=== PATIENT | female | born 2000 | race Caucasian/White ===

== ENCOUNTER 2023-09-18 00:04 | Inpatient (IN) | payer BC, OTHER ==
[~2023-09-18] VITALS: Ht 167.6 cm; Wt 68.0 kg
--- NOTE | ~2023-09-18 | OR ---
[facility] [address] [place], [place] [address] Draft DATE OF OPERATION: 09/19/2023 SURGEON: Shira Sue DO PREOPERATIVE DIAGNOSES: 1. Intrauterine at 40 weeks gestation. 2. Gestational diabetes, diet controlled. 3. Nonreassuring heart tracing. POSTOPERATIVE DIAGNOSES: 1. Intrauterine at 40 weeks gestation. 2. Gestational diabetes, diet controlled. 3. Nonreassuring heart tracing. PROCEDURE PERFORMED: Primary low transverse delivery. [employer]: Jer Mireles MD. ANESTHESIA: Epidural with postoperative TAP blocks. ESTIMATED BLOOD LOSS: 500 mL. COMPLICATIONS: None. DRAINS: Vicente to gravity. SPECIMEN: Cord blood for routine analysis and cord gases pending. COMPLICATIONS: None. FINDINGS: Delivery of viable male , 6 pounds 15 ounces in the LOT position with significant PATIENT NAME: NELIA PEDRAZA OPERATIVE REPORT DATE OF : 99 REPORT #: [id number] PHYSICIAN: SHIRA SUE (NEEL) PCP: SHIRA SUE (NEEL) REPORT IS CONFIDENTIAL AND NOT TO BE RELEASED WITHOUT AUTHORIZATION [facility] [address] [place] [id number] Draft caput. Apgars of 8 and 9. Clear amniotic fluid and nuchal cord x1. Normal uterus, tubes, and ovaries. INDICATIONS: Ms. Pedraza is a very pleasant 22-year-old G1 with intrauterine at 40 weeks and zero days gestation who presented for medical induction of labor for gestational diabetes, well controlled with diet. The patient with an unfavorable cervix and received two doses of Cytotec. Artificial rupture of membranes was performed for a large amount of clear fluid. The patient had adequate frequent contractions. An epidural was kindly placed. The patient then had interval episodes of recurrent late decelerations. IUPC and FSE were placed. Intrauterine resuscitation was performed with maternal position changes and IV fluid boluses. The fetus had episodes of category one tracing with more recurrent late decelerations noted. Per [employer] intrapartum management of category 2 tracings recommended primary low transverse delivery. Risks, benefits, and alternatives were discussed in detail with the patient. The patient understands and wished to proceed with the procedure. PROCEDURE IN DETAIL: The patient was taken to the operating room where a time-out was performed to confirm correct patient and correct procedure. Epidural was bolused and found to be adequate. A Vicente catheter being inserted and patient received Ancef 2 g as well as azithromycin 500 mg preoperatively. No heparin was indicated. A Pfannenstiel skin incision was made approximately 2-3 cm above the pubic symphysis and carried down to the fascia. Fascia was nicked in the midline. Fascial incision was extended bilaterally using curved العلي scissors. Fascia was grasped with Stefania's, elevated the underlying rectus muscle dissected off bluntly and sharply. The rectus was divided bluntly and peritoneum was entered bluntly. Peritoneal incision was extended cephalad caudad using blunt dissection. Lower uterine segment was identified and Collin self retractor was placed. Hysterotomy was performed using a surgical scalpel, lower uterine segment. Clear fluid was noted. Hysterotomy was extended bilaterally using blunt dissection. The surgeon's hand was placed in the uterine cavity. The head gently elevated into the maternal abdomen, noted to be in the LOT position with significant caput. Nuchal cord x1 was identified, which continued wrap-around the body. The was delivered with the assistance of fundal pressure and was vigorous and cried. Hypocoiled cord was instantly noted. Cord was doubly clamped, cut, and the handed to the waiting pediatric team for further care. Cord was obtained for routine analysis and for cord gases. Placenta was expressed, intact with a centrally inserted three-vessel cord. The uterine cavity was cleared of any remaining products of conception or clot. Pitocin was administered per protocol. Hysterotomy was then repaired in two layers of 0 Monocryl, first being a running locked layer and the second being a running imbricating suture in the vertical manner. The pelvis was irrigated and made hemostatic with judicious use of Bovie electrocautery and one figure of eight with 0 Monocryl. Once hemostasis was PATIENT NAME: NELIA PEDRAZA OPERATIVE REPORT DATE OF : 99 REPORT #: [id number] PHYSICIAN: SHIRA SUE (NEEL) PCP: SHIRA SUE (NEEL) DO REPORT IS CONFIDENTIAL AND NOT TO BE RELEASED WITHOUT AUTHORIZATION [facility] [address] [place], [place] [address] Draft appreciated the Collin retractor was removed and peritoneum was approximated using 2-0 Vicryl in a running nonlocked manner. Rectus was gently plicated in the midline with three interrupted sutures of 0 Vicryl and the rectus was irrigated and found to be hemostatic. The fascia was reapproximated using 0 Vicryl in a running nonlocked manner. Subcu was made hemostatic with judicious use of Bovie electrocautery after irrigation. Skin was reapproximated using surgical trevor. The uterus was Crede'd for scant amount of blood and the patient remained in the PACU for postoperative TAP blocks. Sponge, needle, and instrument counts were correct x2 at the end of the procedure. Dr. Mireles was present and participated in all portions of the procedure. DO NADINE Rockwell/ORLANDOL /[id number] Copies: ~ PATIENT NAME: NELIA PEDRAZA OPERATIVE REPORT DATE OF : 99 REPORT #: [id number] PHYSICIAN: SHIRA SUE (NEEL) PCP: SHIRA SUE) REPORT IS CONFIDENTIAL AND NOT TO BE RELEASED WITHOUT AUTHORIZATION
[2023-09-18 00:43] VITALS: BP 137/92
[2023-09-18 00:55] LABS: HEMATOCRIT 35.6 % (35.0-50.0); HEMOGLOBIN 12.1 g/dL (12.0-18.0); MCH 29.6 (27-36); MCHC 33.9 g/dl (30-36); MCV 87.3 fl (81-99); RBC 4.07 M/ul (4.3-5.7); RDW 13.2 (10.5-15.0)
[2023-09-18 01:13] LABS: AMPHETAMINES, URINE NEGATIVE (NEGATIVE); BARBITURATES, URINE NEGATIVE (NEGATIVE); BENZODIAZEPINE, URINE NEGATIVE (NEGATIVE); BUPRENORPHINE, URINE NEGATIVE (NEGATIVE); CANNABINOID, URINE NEGATIVE (NEGATIVE); COCAINE, URINE NEGATIVE (NEGATIVE); ECSTASY, URINE NEGATIVE (NEGATIVE); FENTANYL, URINE NEGATIVE (NEGATIVE); METHADONE, URINE NEGATIVE (NEGATIVE); OPIATES, URINE NEGATIVE (NEGATIVE); OXYCODONE, URINE NEGATIVE (NEGATIVE); PHENCYCLIDINE, URINE NEGATIVE (NEGATIVE)
[2023-09-18 02:04] LABS: ABO O; ANTIBODY SCREEN POSITIVE; RH NEGATIVE
[2023-09-18 02:05] LABS: ANTIBODY IDENTIFICATION ANTI-D
[2023-09-18 08:16] LABS: ALBUMIN 2.9 g/dL (3.4-5.0); ALBUMIN/GLOBULIN RATIO 0.74 (1.1-2.4); BILIRUBIN, TOTAL 0.2 ng/dL (0.2-1.0); BUN/CREATININE RATIO 17.74 (6.0-28.6); CALCIUM 9.4 mg/dL (8.5-10.1); CREATININE, SERUM 0.62 mg/dL (0.55-1.02); PROTEIN, TOTAL 6.8 g/dL (6.4-8.2)
[2023-09-18 09:02] LABS: PROTEIN, RANDOM URINE <6 mg/dL (NOT ESTABLISHED)
[2023-09-18 09:05] LABS: CREATININE, RANDOM URINE 10.53 mg/dL (NOT ESTABLISHED)
--- NOTE | 2023-09-18 12:42 | PR ---
[facility] [address] [place], [place] [address] Signed Progress Notes IP Datetime Report Generated by CPN: 09/18/2023 12:42 PROGRESS NOTES: [id number] Impression: Normal Progression of Labor; Reassuring Heart Rate Procedures: Sterile Vag Exam Plan: Continue Present Management Other Plans: Pt requesting epidural VITAL SIGNS: [id number] Vital Signs: Reviewed; Within Normal Limits VS Notable Details: Elevated BPs; normal PreE labs EXAM: [id number] Dilatation: 1.0 Effacement: 75 Station: -2 Contractions: q 1-2 minutes MEMBRANES: [id number] Comments: Pt seen and examined. Doing well. Uncomfortable w/ contractions. Considering epidural. Reviewed anticipated course of induction / labor. Discussed option for AROM vs Cook. Pt will spend some time in the tub and ambulating. FETUS A: [id number] FHR Baseline: 130 Variability: Moderate 6-25bpm Accelerations: 15X15 Decelerations: None FHR Category: Category I Presentation: Vertex Comments on Fetus A: No evidence of metabolic acidosis FETUS B: [id number] Signing Physician: Shira Sue DO Copies: ~ *Electronically Signed* 09/18/23 1530 SHIRA SUE (NEEL) DO PATIENT NAME: NELIA AQUINO PROGRESS NOTE DATE OF : 99 PHYSICIAN: SHIRA SUE) DO RPT #: [id number] REPORT IS CONFIDENTIAL AND NOT TO BE RELEASED WITHOUT AUTHORIZATION
--- NOTE | 2023-09-18 14:27 | PR ---
[facility] [address] [place], [place] [address] Signed Progress Notes IP Datetime Report Generated by CPN: 09/18/2023 14:27 PROGRESS NOTES: [id number] Impression: Normal Progression of Labor; Reassuring Heart Rate Procedures: Artificial ROM; Sterile Vag Exam Plan: Continue Present Management Other Plans: Epidural on demand Informed Consent Obtain: Vaginal Delivery; Risks, Benefits and Alternatives Discussed Other Informed Consents: AROM VITAL SIGNS: [id number] Vital Signs: Reviewed; Within Normal Limits VS Notable Details: Elevated BPs; normal PreE labs EXAM: [id number] Dilatation: 1.5 Effacement: 80 Station: -2 Contractions: q 2 min MEMBRANES: [id number] Comments: Pt seen and examined. Doing well. Contractions increasing in frequency and intensity. Discussed AROM. AROM performed for large amount of clear fluid. FETUS A: [id number] FHR Baseline: 130 Variability: Moderate 6-25bpm Accelerations: 15X15 Decelerations: None FHR Category: Category I Presentation: Vertex Comments on Fetus A: No evidence of metabolic acidosis FETUS B: [id number] Signing Physician: Shira Sue DO Copies: ~ *Electronically Signed* 09/18/23 1428 SHIRA SUE (NEEL) DO PATIENT NAME: NELIA AQUINO PROGRESS NOTE DATE OF : 99 PHYSICIAN: SHIRA SUE) DO RPT #: [id number] REPORT IS CONFIDENTIAL AND NOT TO BE RELEASED WITHOUT AUTHORIZATION
--- NOTE | 2023-09-18 17:42 | PR ---
[facility] [address] [place], [place] [address] Signed Progress Notes IP Datetime Report Generated by CPN: 09/18/2023 17:42 PROGRESS NOTES: [id number] Impression: Normal Progression of Labor; Reassuring Heart Rate Other Impressions: Slow progression of labor / recurrent decels Procedures: Sterile Vag Exam Plan: Continue Present Management Other Plans: Intrauterine recussitation Informed Consent Obtain: Vaginal Delivery; Risks, Benefits and Alternatives Discussed Other Informed Consents: Indications for if needed VITAL SIGNS: [id number] Vital Signs: Reviewed; Within Normal Limits VS Notable Details: Elevated BPs; normal PreE labs EXAM: [id number] Dilatation: 2.0 Effacement: 90 Station: -2 Contractions: q 2-4 minutes MEMBRANES: [id number] Comments: Pt seen and examined. Comfortable w/ contractions s/p epidural. Since epidural, moderate variability w/ recurrent late and occasional variable decelerations. Intrauterine recussitation w/ IV fluid bolus and maternal repositioning initiated. Reviewed BPs and some softening of BPs since epidural. Will trial ephedrine 10mg IV x 1 dose and monitor. Will attempt hands / knees position. Discussed indications for if needed. All questions answered. FETUS A: [id number] FHR Baseline: 130 Variability: Moderate 6-25bpm Accelerations: 15X15 Decelerations: Late; Variable FHR Category: Category II Presentation: Vertex Comments on Fetus A: No evidence of metabolic acidosis FETUS B: [id number] Signing Physician: Shira Sue DO *Electronically Signed* 09/18/23 7711 SHIRA SUE) DO PATIENT NAME: NELIA AQUINO PROGRESS NOTE DATE OF : 99 PHYSICIAN: SHIRA SUE) DO RPT #: [id number] REPORT IS CONFIDENTIAL AND NOT TO BE RELEASED WITHOUT AUTHORIZATION
--- NOTE | 2023-09-18 18:48 | PR ---
[facility] [address] [place], [place] [address] Signed Progress Notes IP Datetime Report Generated by CPN: 09/18/2023 18:48 PROGRESS NOTES: [id number] Impression: Reassuring Heart Rate Other Impressions: Slow progression of labor / recurrent decels Procedures: Sterile Vag Exam Plan: Continue Present Management Other Plans: Intrauterine recussitation Informed Consent Obtain: Vaginal Delivery; Risks, Benefits and Alternatives Discussed Other Informed Consents: Indications for if needed VITAL SIGNS: [id number] Vital Signs: Reviewed; Within Normal Limits VS Notable Details: Elevated BPs; normal PreE labs EXAM: [id number] Dilatation: 2.0 Effacement: 90 Station: -2 Contractions: q 2-4 minutes MEMBRANES: [id number] Comments: Cat 1 tracing w/ pt now in R lateral position. Will continue to monitor closely. FETUS A: [id number] FHR Baseline: 130 Variability: Moderate 6-25bpm Accelerations: 15X15 Decelerations: None FHR Category: Category I Presentation: Vertex Comments on Fetus A: No evidence of metabolic acidosis FETUS B: [id number] Signing Physician: Shira Sue DO Copies: ~ *Electronically Signed* 09/18/23 1841 SHIRA SUE (NEEL) DO PATIENT NAME: NELIA AQUINO PROGRESS NOTE DATE OF : 99 PHYSICIAN: SHIRA SUE) DO RPT #: [id number] REPORT IS CONFIDENTIAL AND NOT TO BE RELEASED WITHOUT AUTHORIZATION
--- NOTE | 2023-09-19 00:06 | PR ---
[facility] [address] [place], [place] [address] Signed Progress Notes IP Datetime Report Generated by JOE: 09/19/2023 00:06 PROGRESS NOTES: [id number] Impression: Non-reassuring Heart Rate Other Impressions: Slow progression of labor / recurrent decels Procedures: Sterile Vag Exam Plan: Deliver- Section Other Plans: Intrauterine recussitation Informed Consent Obtain: Section Delivery; Risks, Benefits and Alternatives Discussed Other Informed Consents: Indications for if needed VITAL SIGNS: [id number] Vital Signs: Reviewed; Within Normal Limits VS Notable Details: Elevated BPs; normal PreE labs EXAM: [id number] Dilatation: 3.0 Effacement: 95 Station: -2 Contractions: q 3-4 minutes MEMBRANES: [id number] Comments: Pt seen and examined. Pt tearful and tired reporting that she is frustrated and exhaused. Reviewed FHT w/ recurrent late and variable decelerations in the present of moderate variability and accelerations. Reviewed [employer] policy for management of Cat II tracing with recurrent "significant" decelerations. Pt w/ intervals of recurrent late decelerations w/ intervals of more reassuring FHT, and pt remote for delivery w/ cervical dilation < 4cm. Per policy, recommend primary LTCS. Pt understands and agrees. All questions answered. Anceg 2g IV and Azithromycin 500mg IV. Consents signed and OR crew called FETUS A: [id number] FHR Baseline: 130 Variability: Moderate 6-25bpm Accelerations: 15X15 Decelerations: Late; Variable FHR Category: Category II Presentation: Vertex Comments on Fetus A: No evidence of metabolic acidosis FETUS B: [id number] Signing Physician: Shira Sue DO *Electronically Signed* 09/19/235 SHIRA SUE) DO PATIENT NAME: NELIA AQUINO PROGRESS NOTE DATE OF : 99 PHYSICIAN: SHIRA SUE (JD) DO RPT #: [id number] REPORT IS CONFIDENTIAL AND NOT TO BE RELEASED WITHOUT AUTHORIZATION [address] [address] Signed Copies: ~ *Electronically Signed* 09/19/235 SHIRA SUE) DO PATIENT NAME: NELIA AQUINO PROGRESS NOTE DATE OF : 99 PHYSICIAN: SHIRA SUE (JD) DO RPT #: [id number] REPORT IS CONFIDENTIAL AND NOT TO BE RELEASED WITHOUT AUTHORIZATION
--- NOTE | 2023-09-19 01:48 | NUR ---
09/19/23 0148 Marie Ji LE 0140: PT ARRIVES TO [facility] ROOM 102. SHE IS AWAKE AND ALERT. DAD AND BABY AT THE BEDSIDE. LE 0145: BABY TO MOM'S CHEST. [facility] RN TERE IN ROOM. LE 0148: BABY . NO COMPLAINTS OF PAIN OR NAUSEA FROM MOM.
[2023-09-19 01:54] VITALS: BP 109/69
[2023-09-20 06:30] LABS: BASOPHILS 0.4 % (0-2); EOSINOPHILS 0.3 % (0-6); HEMOGLOBIN 10.5 g/dL (12.0-18.0); LYMPHOCYTES 15.4 % (24-44); MCH 29.6 (27-36); MCHC 33.7 g/dl (30-36); MCV 87.9 fl (81-99); NEUTROPHILS 75.9 % (39-80); PLATELET COUNT 173 K/uL (140-440); RBC 3.53 M/ul (4.3-5.7); RDW 13.5 (10.5-15.0)
[2023-09-20 08:37] LABS: ABO O; ANTIBODY SCREEN POSITIVE; RH NEGATIVE
[2023-09-20 08:39] LABS: FETAL HEMOGLOBIN SCREEN NEGATIVE; RHIG DOSE 1; RHIG STATUS CANDIDATE
[2023-09-20 08:44] LABS: ANTIBODY IDENTIFICATION ANTI-D
--- NOTE | 2023-09-20 10:24 | PR ---
[facility] [address] [place], [place] [address] Signed PP Progress Notes Datetime Report Generated by CPN: 09/20/2023 10:24 SUBJECTIVE: [id number] Pain: Within Normal Limits Nausea/Vomiting: Denies Flatus: Yes Bowel Movement: No Vital Signs: [id number] Vital Signs: Reviewed; Within Normal Limits Cardiovascular: Not Done Respiratory: Not Done Abdomen/Uterus: Normal Lochia: Normal Vulva/Perineum: Not Done Breasts: Not Done CVA Tenderness: Not Done Extremities: Normal Incision: Normal Progress: Normal IMPRESSION/PLAN/PROCEDURES: [id number] Impression: Normal Progression Plan: Continue Present Management Procedures: None Progress Notes: S: 22 yo s/p primary section for non-reassuring heart tones. POD #1. Doing well. Denies MESSER, CP, SOB, F/C, N/V, RUQ pain, changes in vision, vaginal discharge. Tolerating regular diet, ambulating, voiding, pain controlled. No concerns or complaints. O: AFVSS Abd: Soft. Appropriately TTP. Fundus below umbilicus. Incision C/D/I with trevor in place. No erythema or drainage. Musc: KIM. A/P: Patient well. Disposition in house. Likely discharge home tomorrow AM. Signing Physician: Arron Mireles MD *Electronically Signed* 09/20/23 1024 ARRON MIRELES MD PATIENT NAME: NELIA AQUINO PROGRESS NOTE DATE OF : 99 PHYSICIAN: ARRON MIRELES MD RPT #: [id number] REPORT IS CONFIDENTIAL AND NOT TO BE RELEASED WITHOUT AUTHORIZATION
--- NOTE | 2023-09-21 08:50 | PR ---
[facility] [address] [place], [place] [address] Signed PP Progress Notes Datetime Report Generated by CPN: 09/21/2023 08:50 SUBJECTIVE: [id number] Pain: Within Normal Limits Nausea/Vomiting: Denies Flatus: Yes Bowel Movement: Yes Vital Signs: [id number] Vital Signs: Reviewed; Within Normal Limits Cardiovascular: Not Done Respiratory: Not Done Abdomen/Uterus: Normal Lochia: Normal Vulva/Perineum: Not Done Breasts: Not Done CVA Tenderness: Not Done Extremities: Normal Incision: Normal Progress: Normal IMPRESSION/PLAN/PROCEDURES: [id number] Impression: Normal Progression Plan: Continue Present Management Procedures: None Progress Notes: S: 22 yo s/p primary section for non-reassuring heart tones. POD #1. Doing well. Denies MESSER, CP, SOB, F/C, N/V, RUQ pain, changes in vision, vaginal discharge. Tolerating regular diet, ambulating, voiding, pain controlled. No concerns or complaints. O: AFVSS Abd: Soft. Appropriately TTP. Fundus below umbilicus. Incision C/D/I with trevor in place. No erythema or drainage. Musc: KIM. A/P: Patient well. Disposition in house. Likely discharge home tomorrow AM. Signing Physician: Arron Mireles MD *Electronically Signed* 09/21/23 0850 ARRON MIRELES MD PATIENT NAME: NELIA AQUINO PROGRESS NOTE DATE OF : 99 PHYSICIAN: ARRON MIRELES MD RPT #: [id number] REPORT IS CONFIDENTIAL AND NOT TO BE RELEASED WITHOUT AUTHORIZATION
== END 2023-09-21 12:31 | disposition home or self-care (01) | DRG 788 ==
LOC: FBC 00:04
PROVIDERS: ADMIT Obstetrics & Gynecology; ATTEND Obstetrics & Gynecology
PROC: 10H07YZ Insertion of Other Device into Products of Conception, Via Natural or Artificial Opening (ICD-10-PCS; 2023-09-19)
PROC: 4A1HXCZ Monitoring of Products of Conception, Cardiac Rate, External Approach (ICD-10-PCS; 2023-09-19)
PROC: 10D00Z1 Extraction of Products of Conception, Low, Open Approach (ICD-10-PCS; principal; 2023-09-19 00:46)
DX: O48.0 Post-term pregnancy (principal); O24.420 Gestational diabetes mellitus in childbirth, diet controlled; Z3A.40 40 weeks gestation of pregnancy; Z37.0 Single live birth; O76 Abnormality in fetal heart rate and rhythm complicating labor and delivery
CPT/HCPCS: 01961; 36415; 80053; 80307; 82565; 82570; 82803; 83030; 83615; 84156; 84550; 85025; 85027; 86850; 86870; 86900; 86901; A9270; J0456; J0690; J1100; J1650; J1885; J2274; J2371; J2405; J2590; J2765; J2790; J2795; J7042; J7121